=== PATIENT | male | born 1950 | race African-American/Black ===

== ENCOUNTER → 2016-07-04 | Outpatient (CLI) | payer MEDICARE, MEDICAID ==
[~2016-07-04] MED LIST: AMLO5TAB2 PO; ASP325T PO; ATOR20TA66 PO; CLON0.2T12 PO; CYCL10TA9 PO; HCTZ12.5T PO; LEXAPRO PO; LISI20TA PO; METO100T2 PO; MULT-608 PO; NITR0.4T SL; POTA10CA43 PO; TR1O15 TOP; TRAM50TA2 PO
--- NOTE | 2016-07-04 13:23 | Diagnostic Imaging Report ---
PROCEDURE: CT chest without contrast. TECHNIQUE: Multiple contiguous axial images were obtained through the chest without the use of intravenous contrast. INDICATION: Followup pulmonary nodule. COMPARISON: 10/27/14. FINDINGS: There is a lobulated dense pleural-based mass seen in the upper posterior aspect of the right hemothorax measuring 3.1 x 1.3 x 1.5 cm. These measurements and overall appearance are similar to prior exams including 06/25/2014 with no adverse development. Paraseptal emphysema with prominent peripheral bulla are seen in both lung apices but more prominent on the right side and is similar to prior exams. There is no new suspicious nodule, mass or consolidation. Calcified granulomas in the right lower lobe are seen. The mediastinum demonstrates normal caliber of the thoracic aorta. No mediastinal or hilar lymphadenopathy is seen. No pericardial or pleural effusion is identified. The osseous structures and sections in the upper abdomen appear grossly unremarkable. IMPRESSION: 1. Stable pleural-based mass along the upper posterior aspect of the right hemithorax is suggestive of scarring possibly related to prior trauma or injury. Two-year stability is established compatible with benign etiology. 2. Emphysema with prominent apical bulla bilaterally. Dictated by: Dictated on workstation # [id number]
== END ==
LOC: RAD 10:03
PROVIDERS: ATTEND Nurse Practitioner Family
DX: J44.9 Chronic obstructive pulmonary disease, unspecified (principal); R09.02 Hypoxemia; R91.8 Other nonspecific abnormal finding of lung field
CPT/HCPCS: 71250

== ENCOUNTER 2018-03-29 21:04 | Emergency (ER) | payer MEDICARE, MEDICAID ==
[~2018-03-29] VITALS: Ht 170.2 cm; Wt 68.0 kg
[2018-03-29] MEDS ORDERED: MONT10TA24 (21:12)
[2018-03-29] MEDS ORDERED: POTA10TA14 (21:12)
[2018-03-29] MEDS ORDERED: ALBU18HF2 (21:12)
[2018-03-29] MEDS ORDERED: CLON1PAT34 (21:12)
[2018-03-29] MEDS ORDERED: LACTATED RINGERS 1,000 ML IV ONE (21:12)
--- OUTSIDE RECORDS SUMMARY | 2018-03-29 21:12 | XMS REPORT | Encounter Summary ---
Author Author [facility] Organization [facility] Address Unknown Phone Unavailable Care Team Providers Care Sole Stitcher Hand Name Role Phone Roque Mccabe MD Unavailable Sumi Posadas MD Unavailable Thuan Guadarrama MD Unavailable Smitha Andersen MD PCP Unavailable Smitha Andersen MD 100 Unavailable Reason for Visit * Reason Comments Medication Refill Encounter Details Care Team Description Date Type Department Shanks, Vaughn, DO [address] [place] [address] 01/24/2018 Refill [facility] L[address] [place] [address] Social History Date Tobacco Use Types Packs/Day Years Used Current Some Day Smoker Cigarettes 0.75 48 Smokeless Tobacco: Never Used Comments: Reports he started smoking at age 17, 3/4 pack a day on average. Has cut down recently. Alcohol Use Drinks/Week oz/Week Comments Yes 2 Cans of 1.8 beer 1 Shots of liquor Sex Assigned at Date Recorded Not on file Industry Job Start Date Occupation Not on file Not on file Not on file Travel End Travel History Travel Start No recent travel history available. as of this encounter Functional Status Date of Assessment Functional Status Response 08/17/2016 Does the patient have a hearing impairment: Yes 01/01/2017 Does the patient have a visual impairment: Yes 08/17/2016 Does the patient have impaired ambulation: Yes 08/17/2016 Does the patient have an activity of daily living No (ADL) impairment: 08/17/2016 Does the patient have an instrumental activity of No daily living (IADL) impairment: Date of Assessment Cognitive Status Response 08/17/2016 Does the patient have a cognitive impairment: No as of this encounter Miscellaneous Notes * Telephone Encounter - Oliver Frias LPN - 01/24/2018 11:57 AM AWNING HANGER HELPER Amlodipine refilled per [facility] protocol. NG HANGER HELPER in this encounter Plan of Treatment Not on fileas of this encounter Visit Diagnoses Not on filein this encounter
--- OUTSIDE RECORDS SUMMARY | 2018-03-29 21:12 | XMS REPORT | Clinical Summary ---
Author Author [facility] Organization [facility] Address Unknown Phone Unavailable Care Team Providers Care Wheel Blocker Name Role Phone Roque Mccabe MD Unavailable Sumi Posadas MD Unavailable Thuan Guadarrama MD Unavailable Smitha Andersen MD PCP Unavailable Smitha Andersen MD 100 Unavailable Source Comments Some departments are not documenting in the electronic medical record. If you do not see the information that you expected, contact Release of Information in the Health Information Management department at [phone] for further assistance in locating additional records.[facility] Allergies Comments Active Allergy Reactions Severity Noted Date Pollen SNEEZING Low 12/09/2015 Medications End Date Status Medication Sig Dispensed Refills Start Date Active nitroglycerin (NITROSTAT) Place 0.3 mg 0 0.3 mg tablet under tongue every 5 minutes as needed for Chest Pain. Active metoprolol (LOPRESSOR) Take 50 mg by 0 100 mg tablet mouth twice daily. Active lisinopril (PRINIVIL; Take 20 mg by 0 ZESTRIL) 20 mg tablet mouth daily. Active cloNIDine (CATAPRES-TTS Apply 1 Patch 0 1) 0.1 mg/day patch to top of skin as directed every 7 days. Active aspirin EC 325 mg tablet Take 325 mg 0 by mouth daily. Active albuterol (VENTOLIN HFA, Inhale 2 0 PROAIR HFA) 90 Puffs by mcg/actuation inhaler mouth every 6 hours as needed for Wheezing. Active vitamins, multiple cap Take 1 Cap by 0 mouth daily. Active HYDROcodone/acetaminophen Take 1-2 Tabs 20 Tab 0 (NORCO; VICODIN) 5-325 mg by mouth 6 tablet every 4 hours as needed for Pain Earliest Fill Date: 08/26/15 Active gabapentin (NEURONTIN) Take 1 Cap by 270 Cap 3 300 mg capsule mouth every 8 6 hours. Start 1 tab QAM x 3 days, then 1 tab BID x 3, then 1 tab TID. Active atorvastatin (LIPITOR) 40 Take 1 Tab by 90 Tab 3 mg tablet mouth daily. 6 Active hydroCHLOROthiazide Take 1 Tab by 90 Tab 1 (HYDRODIURIL) 12.5 mg mouth daily. 7 tablet Active avanafil 200 mg tab Take 1 Tab by 3 Tab 11 mouth as 7 Needed (Erectile Dysfunction). 1 tab po 15-30 min prior to sexual activity. Active nicotine polacrilex Take 1 each 1 box 1 (NICORETTE) 2 mg gum by mouth as 7 Needed for Smoking cessation. Active amLODIPine (NORVASC) 5 mg TAKE ONE 90 tablet 0 tablet TABLET BY 8 MOUTH ONCE DAILY Active Problems Problem Noted Date S/P angioplasty with stent 02/15/2017 Overview: Between 5-10 years @ [place], [place] Unable to get records. Destroyed in [place]. Coronary artery calcification 02/14/2017 Overview: Marked coronary artery calcification,per Lung screening CT in 01/01/17. Tobacco abuse disorder 02/14/2017 Overview: > 40 pk year smoking history. Essential hypertension 02/14/2017 Overview: Treated for many years. Chronic bullous emphysema 02/14/2017 Nocturnal hypoxemia due to emphysema 02/14/2017 Overview: Uses O2 @2.5 as needed @ noc and as needed during day(ordered 2 years ago) Hyperlipidemia, mixed 02/14/2017 Overview: On statin. Multiple pulmonary nodules 01/01/2017 Scrotal irritation 10/22/2015 Overview: 03/16/16: Continues to have anterior scrotal burning/discomfort since male sling procedure, not relieved by gabapentin. L ast Assessment & Plan: Mr. Thomson is a 65 year old gentleman who had a male sling placed by Dr. Mccabe 08/25/15 for JOE post-prostatectomy and since that time has had anterior scrotal pain, refractory to gabapentin. Plan: - Referral to pain management service - Encouraged to continue gabapentin if he feels it provides any benefit Prostate cancer 08/07/2014 Overview: 01/14/2014: RALP/BPLND by Dr. Anthony evans Assessment & Plan: Continue follow up with Dr. Cruz/Lai Erectile dysfunction 08/07/2014 Overview: 03/16/16: Reports he needs more stendra, which works well for him. Prince evans Assessment & Plan: - Prescription for stendra sent to his pharmacy - Patient was advised about side effects of flushing, hypotension, headache, lightheadedness, congestion, rhinorrhea, and the need to avoid driving after taking. Also instructed to contact us if he has any vision or hearing changes. Patient was also informed that he will still need stimulation for the drug to work. Stress incontinence, male 08/07/2014 Overview: 63 year old with mixed urinary incontinence (Stress >> Urge) after RALP by Dr. Cruz in 12/2013. He has followed with Dr. Hoyt since surgery and unfortunately has not improved with kegels or 3 anti-cholinergic medications. 08/25/15: Male sling implantation by Dr. Mccabe 03/16/16: No leakage. Very satisfied Last Assessment & Plan: - Continue to monitor Encounters Care Team Description Date Type Specialty Vaughn Wise DO 01/24/2018 Refill Family Medicine from Last 3 Months Immunizations Name Dates Previously Given Next Due Flu Vaccine 12/09/2015 Quadrivalent=>3 Yo (Preservative Free) Pneumococcal Vaccine 12/09/2015 (23-Laurie Adult) Family History Medical History Relation Name Comments Diabetes Father Hypertension Mother Relation Name Status Comments Father Mother Social History Date Tobacco Use Types Packs/Day Years Used Current Some Day Smoker Cigarettes 0.75 48 Smokeless Tobacco: Never Used Tobacco Cessation: Ready to Quit: Yes; Counseling Given: Yes Comments: Reports he started smoking at age [...] Travel Start No recent travel history available. Last Filed Vital Signs Time Taken Vital Sign Reading 02/15/2017 2:11 PM CIVIL PREPAREDNESS TRAINING OFFICER Blood Pressure 124/82 02/15/2017 2:11 PM CIVIL PREPAREDNESS TRAINING OFFICER Pulse 46 10/26/2016 11:09 AM CDT Temperature 36.7 C (98 F) 01/22/2017 8:59 AM CIVIL PREPAREDNESS TRAINING OFFICER Respiratory Rate 18 01/22/2017 8:59 AM CIVIL PREPAREDNESS TRAINING OFFICER Oxygen Saturation 100% - Inhaled Oxygen - Concentration 02/15/2017 2:11 PM CIVIL PREPAREDNESS TRAINING OFFICER Weight 69.4 kg (153 lb) 02/15/2017 2:11 PM CIVIL PREPAREDNESS TRAINING OFFICER Height 170.2 cm (5' 7") 02/15/2017 2:11 PM CIVIL PREPAREDNESS TRAINING OFFICER Body Mass Index 23.96 Plan of Treatment Health Maintenance Due Date Last Done Comments HEPATITIS C SCREENING 1952 DTAP/TDAP VACCINES (1 - 1970 Tdap) COLORECTAL CANCER 2002 SCREENING SHINGLES RECOMBINANT 2002 VACCINE (1 of 2) INFLUENZA VACCINE 09/26/2017 12/09/2015, 12/09/2015, 12/28/2014 PHYSICAL (COMPREHENSIVE) 10/26/2017 10/26/2016 EXAM ABDOMINAL AORTIC ANEURYSM 2017 01/24/2017 SCREENING PNEUMONIA (PCV13/PPSV23) 2017 12/09/2015 VACCINES (1 of 2 - PCV13) HIV SCREENING Completed 10/26/2016 Implants Device Identifier Shelf Expiration Date Model / Serial / Lot Implanted Type Area Manufactur [id number] / [id number] / [id number] Sling Suburethral Advance Kit N/A: Peritoneum [employer] Polypropylene Male SYS Implanted: Qty: 1 on 08/25/2015 by Roque Mccabe MD Results Not on filefrom Last 3 Months Insurance Payer Benefit Subscriber ID Type Phone Address Plan / Group MEDICARE MEDICARE xxxxxxxxxx Medicare PART A AND B [place] [employer] xxxxxxxxxxx Medicaid STATE HEALTH Advance Directives Patient has advance care planning documents, and code status on file. For more information, please contact: [facility] [address] [place] [address] Date Inactivated Comments Code Status Date Activated 08/26/2015 6:48 PM Full Code 08/25/2015 4:09 PM Provider has discussed Code Status Yes w/Patient or Family?
[2018-03-29 21:35] LABS: BILIRUBIN,URINE NEGATIVE (NEGATIVE); CLARITY,URINE CLEAR; COLOR,URINE YELLOW; GLUCOSE, URINE (UA) NEGATIVE (NEGATIVE); KETONES,URINE NEGATIVE (NEGATIVE); LEUKOCYTE ESTERASE ,URINE NEGATIVE (NEGATIVE); NITRITE,URINE NEGATIVE (NEGATIVE); PH,URINE 6 (5-9); PROTEIN,URINE 2+ (NEGATIVE); UROBILINOGEN,URINE NORMAL (NORMAL)
[2018-03-29 21:36] LABS: BASOPHILS % (AUTO) 0 % (0-10); EOSINOPHILS % (AUTO) 0 % (0-10); HEMATOCRIT 37 % (40-54); HEMOGLOBIN 12.7 G/DL (13.3-17.7); LYMPHOCYTES # (AUTO) 1.5 X 10^3 (1.0-4.0); LYMPHOCYTES % (AUTO) 22 % (12-44); MEAN CORPUSCULAR HEMOGLOBIN 29 PG (25-34); MEAN CORPUSCULAR HGB CONC 34 G/DL (32-36); MEAN CORPUSCULAR VOLUME 86 FL (80-99); MEAN PLATELET VOLUME 10.4 FL (7.4-10.4); MONOCYTES # (AUTO) 0.7 X 10^3 (0.0-1.0); MONOCYTES % (AUTO) 10 % (0-12); NEUTROPHILS # (AUTO) 4.4 X 10^3 (1.8-7.8); NEUTROPHILS % (AUTO) 67 % (42-75); PLATELET COUNT 257 10^3/uL (130-400); WHITE BLOOD COUNT 6.6 10^3/uL (4.3-11.0)
[2018-03-29 21:41] LABS: AMORPHOUS SEDIMENT,UR FEW AMOR URATES /LPF
[2018-03-29 21:45] LABS: INR 1.1 (0.8-1.4); PROTHROMBIN TIME PATIENT 13.9 SEC (12.2-14.7)
[2018-03-29 21:54] LABS: ALANINE AMINOTRANSFERASE 23 U/L (0-55); ALBUMIN 3.8 GM/DL (3.2-4.5); ALKALINE PHOSPHATASE 68 U/L (40-136); AMYLASE 73 U/L (25-125); BILIRUBIN,TOTAL 0.3 MG/DL (0.1-1.0); BUN/CREATININE RATIO 10; CALCIUM 8.6 MG/DL (8.5-10.1); CARBON DIOXIDE 17 MMOL/L (21-32); CHLORIDE 105 MMOL/L (98-107); CREATINE KINASE 282 U/L (30-200); CREATININE SERUM 1.36 MG/DL (0.60-1.30); GFR ESTIMATED > 60; GLUCOSE 106 MG/DL (70-105); LIPASE 26 U/L (8-78); MAGNESIUM 2.1 MG/DL (1.8-2.4); POTASSIUM 3.7 MMOL/L (3.6-5.0); SODIUM 137 MMOL/L (135-145); TOTAL PROTEIN 7.1 GM/DL (6.4-8.2)
[2018-03-29 21:57] LABS: AMPHETAMINE SCREEN, URINE NEGATIVE (NEGATIVE); BARBITURATE SCREEN URINE NEGATIVE (NEGATIVE); BENZODIAZEPINES SCREEN URINE NEGATIVE (NEGATIVE); CANNABINOID SCREEN, URINE NEGATIVE (NEGATIVE); COCAINE SCREEN URINE POSITIVE (NEGATIVE); METHADONE STAT NEGATIVE (NEGATIVE); METHAMPHETAMINE SCREEN URINE S NEGATIVE (NEGATIVE); OPIATE SCREEN URINE NEGATIVE (NEGATIVE); OXYCODONE STAT NEGATIVE (NEGATIVE); PROPOXYPHENE STAT NEGATIVE (NEGATIVE); TRICYCLIC ANTIDEPRESSANTS SCRE NEGATIVE (NEGATIVE)
[2018-03-29 21:58] LABS: ACETAMINOPHEN < 10 UG/ML (10-30)
[2018-03-29 22:00] LABS: CREATINE KINASE MB 1.8 NG/ML (<6.6)
--- NOTE | 2018-03-29 22:06 | Diagnostic Imaging Report ---
INDICATION: Alcohol intoxication, possible seizure. EXAMINATION: CT brain without contrast, 03/29/2018. COMPARISON: None. FINDINGS: Chronic ischemic change is seen in a periventricular distribution. A large area of encephalomalacia is noted within the posterior left occipital lobe. Adjacent ex vacuo dilatation of the posterior horn of the left lateral ventricle noted. No mass, mass effect or midline shift. No hydrocephalus. No acute hemorrhage. There is a rounded hyperdensity in the left frontal region, likely a small osteoma. Osseous structures are intact with no acute osseous abnormality appreciated. The paranasal sinuses and mastoid air cells appear clear. IMPRESSION: Diffuse chronic findings, as described. No acute process appreciated. Dictated by: Dictated on workstation # [id number]
--- NOTE | 2018-03-29 22:20 | ED General ---
General Chief Complaint: Substance Abuse Stated Complaint: ALCOHOL INTOXICATION Nursing Triage Note: brought in by [facility] c/o alcohol intoxication, possible seizure. Nursing Sepsis Screen: No Definite Risk Allergies and Home Medications Allergies Coded Allergies: No Known Drug Allergies (Unverified , 01/05/14) Home Medications Amlodipine Besylate 5 Mg Tab, 5 MG PO DAILY, (Reported) Atorvastatin 20 Mg Tablet, 20 MG PO HS, (Reported) Clonidine HCl 0.2 Mg Tablet, 0.2 MG PO TID, (Reported) Hydrochlorothiazide 12.5 Mg Cap, 12.5 MG PO DAILY, (Reported) Lisinopril 20 Mg Tablet, 20 MG PO DAILY, (Reported) Metoprolol Tartrate 100 Mg Tablet, 100 MG PO BID, (Reported) Potassium Chloride 10 Meq Capsule.sa, 20 MEQ PO DAILY, (Reported) TAKE 2 (10MEQ) TABS Tramadol Hcl 50 Mg Tablet, 50 MG PO Q4H PRN for PAIN, (Reported) PRN PAIN [Lexapro] , 10 MG PO DAILY, (Reported) Past Etbentj-Vdbtsk-Btgluy Hx Patient Social History Alcohol Use: Occasionally Uses Number of Drinks Today: 40 Alcohol Beverage of Choice: Beer, Rum, [place] Recreational Drug Use: Yes Drug of Choice: cannibus, cocaine Smoking Status: Current Everyday Smoker Type Used: Cigarettes 2nd Hand Smoke Exposure: Yes Recent Foreign Travel: No Contact w/Someone Who Travel: No Recent Infectious Disease Expo: No Recent Hopitalizations: No Immunizations Up To Date Tetanus Booster (TDap): Unknown Seasonal Allergies Seasonal Allergies: No Past Medical History Surgeries: Yes (HEART STENTS X2, polyps) Respiratory: Yes Asthma, COPD Currently Using CPAP: No Currently Using BIPAP: No Cardiac: Yes Coronary Artery Disease, High Cholesterol, Hypertension Neurological: Yes Stroke Genitourinary: Yes Prostate Problems Gastrointestinal: Yes Gastroesophageal Reflux Musculoskeletal: Yes Arthritis Endocrine: No HEENT: No Cancer: Yes Prostate Did You Recieve Any Treatments: Yes Psychosocial: No Integumentary: No Blood Disorders: No Family Medical History Alcoholism G8 BROTHER Cardiovascular disease G8 BROTHER G8 SISTER Completed stroke G8 SISTER Diabetes mellitus G8 BROTHER Hypertension G8 BROTHER G8 SISTER No Family History of: AIDS Alzheimer's disease Arthritis Colon cancer Drug abuse Kidney disease Myocardial infarction Prostate cancer Respiratory disorder Seizure disorder Severe allergy Thyroid disease Physical Exam Vital Signs Vital Signs - First Documented 03/29/18 03/29/18 21:04 21:10 Temp 97.4 Pulse 67 Resp 16 B/P (MAP) 139/75 (96) Pulse Ox 92 O2 Delivery Room Air O2 Flow Rate 2.00 Capillary Refill : Less Than 3 Seconds Height, Weight, BMI Height: 5'7.00" Weight: 150lbs. oz. 68.406814sj; 23.18 BMI Method:Stated Progress/Results/Core Measures Suspected Sepsis Recent Fever Within 48 Hours: No Infection Criteria Present: None New/Unexplained Altered Menta: No Sepsis Screen: No Definite Risk SIRS Temperature:97.4 Pulse: 67 Respiratory Rate: 16 Laboratory Tests 03/29/18 21:15: White Blood Count 6.6 Blood Pressure 139 /75 Mean: 96 Laboratory Tests 03/29/18 21:15: Creatinine 1.36H, INR Comment 1.1, Platelet Count 257, Total Bilirubin 0.3 Results/Orders Lab Results Laboratory Tests Test 03/29/18 21:12 03/29/18 21:15 03/29/18 21:30 Range/Units Urine Color YELLOW Urine Clarity CLEAR Urine pH 6 5-9 Urine Specific [place] 1.015 L 1.016-1.022 Urine Protein 2+ H NEGATIVE Urine Glucose (UA) NEGATIVE NEGATIVE Urine Ketones NEGATIVE NEGATIVE Urine Nitrite NEGATIVE NEGATIVE Urine Bilirubin NEGATIVE NEGATIVE Urine Urobilinogen NORMAL NORMAL MG/DL Urine Leukocyte Esterase NEGATIVE NEGATIVE Urine RBC (Auto) NEGATIVE NEGATIVE Urine RBC NONE /HPF Urine WBC NONE /HPF Urine Crystals PRESENT H /LPF Urine Amorphous Sediment FEW SUDHA URATES H /LPF Urine Bacteria NONE /HPF Urine Casts NONE /LPF Urine Mucus NEGATIVE /LPF Urine Culture Indicated NO White Blood Count 6.6 4.3-11.0 10^3/uL Red Blood Count 4.32 L 4.35-5.85 10^6/uL Hemoglobin 12.7 L 13.3-17.7 G/DL Hematocrit 37 L 40-54 % Mean Corpuscular Volume 86 80-99 FL Mean Corpuscular Hemoglobin 29 25-34 PG Mean Corpuscular Hemoglobin Concent 34 32-36 G/DL Red Cell Distribution Width 14.0 10.0-14.5 % Platelet Count 257 130-400 10^3/uL Mean Platelet Volume 10.4 7.4-10.4 FL Neutrophils (%) (Auto) 67 42-75 % Lymphocytes (%) (Auto) 22 12-44 % Monocytes (%) (Auto) 10 0-12 % Eosinophils (%) (Auto) 0 0-10 % Basophils (%) (Auto) 0 0-10 % Neutrophils # (Auto) 4.4 1.8-7.8 X 10^3 Lymphocytes # (Auto) 1.5 1.0-4.0 X 10^3 Monocytes # (Auto) 0.7 0.0-1.0 X 10^3 Eosinophils # (Auto) 0.0 0.0-0.3 10^3/uL Basophils # (Auto) 0.0 0.0-0.1 10^3/uL Prothrombin Time 13.9 12.2-14.7 SEC INR Comment 1.1 0.8-1.4 Activated Partial Thromboplast Time 23 L 24-35 SEC Sodium Level 137 135-145 MMOL/L Potassium Level 3.7 3.6-5.0 MMOL/L Chloride Level 105 98-107 MMOL/L Carbon Dioxide Level 17 L 21-32 MMOL/L Anion Gap 15 H 5-14 MMOL/L Blood Urea Nitrogen 13 7-18 MG/DL Creatinine 1.36 H 0.60-1.30 MG/DL Estimat Glomerular Filtration Rate > 60 BUN/Creatinine Ratio 10 Glucose Level 106 H 70-105 MG/DL Calcium Level 8.6 8.5-10.1 MG/DL Corrected Calcium 8.8 8.5-10.1 MG/DL Magnesium Level 2.1 1.8-2.4 MG/DL Total Bilirubin 0.3 0.1-1.0 MG/DL Aspartate Amino Transf (AST/SGOT) 27 5-34 U/L Alanine Aminotransferase (ALT/SGPT) 23 0-55 U/L Alkaline Phosphatase 68 40-136 U/L Total Creatine Kinase 282 H 30-200 U/L Creatine Kinase MB 1.8 <6.6 NG/ML Myoglobin 79.0 10.0-92.0 NG/ML Troponin I < 0.028 <0.028 NG/ML Total Protein 7.1 6.4-8.2 GM/DL Albumin 3.8 3.2-4.5 GM/DL Amylase Level 73 25-125 U/L Lipase 26 8-78 U/L Acetaminophen Level < 10 L 10-30 UG/ML Serum Alcohol 146 H <10 MG/DL Urine Opiates Screen NEGATIVE NEGATIVE Urine Oxycodone Screen NEGATIVE NEGATIVE Urine Methadone Screen NEGATIVE NEGATIVE Urine Propoxyphene Screen NEGATIVE NEGATIVE Urine Barbiturates Screen NEGATIVE NEGATIVE Ur Tricyclic Antidepressants Screen NEGATIVE NEGATIVE Urine Phencyclidine Screen NEGATIVE NEGATIVE Urine Amphetamines Screen NEGATIVE NEGATIVE Urine Methamphetamines Screen NEGATIVE NEGATIVE Urine Benzodiazepines Screen NEGATIVE NEGATIVE Urine Cocaine Screen POSITIVE H NEGATIVE Urine Cannabinoids Screen NEGATIVE NEGATIVE My Orders Orders - CHAYA SILVESTRE DO Saline Lock/Iv-Start (03/29/18 21:12) Ekg Tracing (03/29/18 21:12) O2 (03/29/18 21:12) Monitor-Rhythm Ecg Trace Only (03/29/18 21:12) Ct Head Wo-R/O Stroke (03/29/18 21:12) Acetaminophen (03/29/18 21:12) Alcohol (03/29/18 21:12) Amylase (03/29/18 21:12) Cbc With Automated Diff (03/29/18 21:12) Comprehensive Metabolic Panel (03/29/18 21:12) Creatine Kinase (03/29/18 21:12) Creatine Kinase Mb (03/29/18 21:12) Drug Screen Stat (Urine) (03/29/18 21:12) Lipase (03/29/18 21:12) Magnesium (03/29/18 21:12) Protime With Inr (03/29/18 21:12) Partial Thromboplastin Time (03/29/18 21:12) Troponin I (03/29/18 21:12) Ua Culture If Indicated (03/29/18 21:12) Myoglobin Serum (03/29/18 21:12) Chest 1 View, Ap/Pa Only (03/29/18 21:12) Saline Lock/Iv-Start (03/29/18 21:12) Lactated Ringers (Lr 1000 Ml Iv Solution (03/29/18 21:12) Vital Signs/I&O 03/29/18 03/29/18 21:04 21:10 Temp 97.4 Pulse 67 Resp 16 B/P (MAP) 139/75 (96) Pulse Ox 92 95 O2 Delivery Room Air Nasal Cannula O2 Flow Rate 2.00 Capillary Refill : Less Than 3 Seconds Blood Pressure Mean: [address] HEAD--NO ACUTE PROCESS, CHRONIC CHANGES, OLD ENCEPHALOMALACIA IN OCCIPITAL AREA--PER RADIOLOGIST REPORT AT 2218 CXR--NO ACUTE PROCESS, CHRONIC CHANGES, PER RADIOLOGIST REPORT AT 2224 Reviewed: Reviewed by Me Departure Impression Primary Impression: Alcohol abuse Additional Impression: Drug abuse Disposition: 01 HOME, SELF-CARE Condition: Stable Departure-Patient Inst. Referrals: SELF,VIOLETA COBB (PCP/Family) Primary Care Physician Patient Instructions: ALCOHOL AND SUBSTANCE ABUSE, Alcohol Abuse and Alcoholism (DC), Drug Abuse and Drug Addiction (DC) Add. Discharge Instructions: NO ALCOHOL NO DRUGS LOTS OF CLEAR LIQUIDS--DRINK EQUAL AMOUNTS OF WATER AND GATORADE FOLLOW UP WITH YOUR DR NEXT WEEK FOR FOLLOW UP RETURN TO ER IF NEEDED All discharge instructions reviewed with patient and/or family. Voiced understanding. CHAYA SILVESTRE DO Mar 29, 2018 22:20
--- NOTE | 2018-03-29 22:23 | Diagnostic Imaging Report ---
INDICATION: Alcohol intoxication, possible seizure. EXAMINATION: Chest, 03/29/2018. COMPARISON: Correlation made to prior CT imaging of the chest from 07/04/2016. FINDINGS: There are densities throughout the right mid and lower lung which appear calcified and consistent with calcified granuloma seen on prior CT imaging. The lungs are hyperinflated. Nonspecific low-density areas are noted in the right lung apex. This could represent the pleural-based lesion seen on prior CT with peripheral calcifications, perhaps calcified pleural plaque or mass. This is fairly stable but could be better characterized with followup CT of the chest for comparison on a nonemergent basis. Remaining lungs demonstrate chronic findings. No effusions. No infiltrates. No pneumothorax. Heart and pulmonary vasculature demonstrate no acute findings. IMPRESSION: Diffuse chronic findings, as described. Low-density area in the right lung apex is noted and consistent with prior findings, please see above discussion. Dictated by: Dictated on workstation # [id number]
[2018-03-29 22:40] VITALS: BP 151/89
== END 2018-03-29 22:42 | disposition home or self-care (01) ==
LOC: EDUNIT# 21:04 → ER 21:05
DX: F10.129 Alcohol abuse with intoxication, unspecified (principal); J44.9 Chronic obstructive pulmonary disease, unspecified; I25.10 Atherosclerotic heart disease of native coronary artery without angina pectoris; E78.00 Pure hypercholesterolemia, unspecified; I10 Essential (primary) hypertension; K21.9 Gastro-esophageal reflux disease without esophagitis; F14.10 Cocaine abuse, uncomplicated; F12.10 Cannabis abuse, uncomplicated; F17.210 Nicotine dependence, cigarettes, uncomplicated; Z86.73 Personal history of transient ischemic attack (TIA), and cerebral infarction without residual deficits; Z92.21 Personal history of antineoplastic chemotherapy; Z82.49 Family history of ischemic heart disease and other diseases of the circulatory system; Z95.5 Presence of coronary angioplasty implant and graft; Z85.46 Personal history of malignant neoplasm of prostate; Z86.010 Personal history of colon polyps
CPT/HCPCS: 36415; 70450; 71045; 80053; 80306; 80320; 80329; 81000; 82150; 82550; 82553; 83690; 83735; 83874; 84484; 85025; 85610; 85730; 93041

== ENCOUNTER → 2019-09-03 | Outpatient (CLI) | payer MEDICAID, MEDICARE ==
[~2019-09-03] MED LIST changes: +ALBU18HF2; +CLON1PAT34; +MONT10TA26; +POTA10TA14
--- NOTE | 2019-09-03 13:14 | Diagnostic Imaging Report ---
INDICATION: Abdominal distention. TIME OF EXAM: 12:39 p.m. COMPARISON: No prior studies are available for comparison. FINDINGS: The bowel gas pattern is nonobstructed. No definite free air is seen. No pathologic calcifications are detected. There are some sclerotic curvilinear opacities in the femoral heads bilaterally. This may be owing to osteonecrosis, although no fragmentation or volume loss of the femoral heads is seen. IMPRESSION: No acute feature in the abdomen is identified. Dictated by: Dictated on workstation # [id number]
== END ==
LOC: RAD FS 12:17
PROVIDERS: ATTEND Family Medicine
DX: R14.0 Abdominal distension (gaseous) (principal); J43.1 Panlobular emphysema
CPT/HCPCS: 74018

== ENCOUNTER → 2022-08-05 | Outpatient (CLI) | payer MEDICARE, MEDICAID ==
[~2022-08-05] MED LIST changes: +MONT-40; -MONT10TA26; +POTA-164; -POTA10TA14
--- NOTE | 2022-08-05 14:20 | Diagnostic Imaging Report ---
INDICATION: Left foot pain. Foot injury. FINDINGS: Alignment of the foot appears appropriate. There are no findings of joint dislocation. There is no fracture. There is no suspicious bone lesion. There are small vessel arterial calcifications. There are no significant arthritic changes or erosions. IMPRESSION: 1. Negative radiographs of the left foot. Dictated by: Dictated on workstation # [id number]
== END ==
LOC: RAD FS 13:38
PROVIDERS: ATTEND Nurse Practitioner Family
DX: M79.672 Pain in left foot (principal)
CPT/HCPCS: 73630

== ENCOUNTER → 2023-01-22 | Outpatient (CLI) | payer MEDICARE, MEDICAID ==
--- NOTE | 2023-01-22 11:33 | Diagnostic Imaging Report ---
PROCEDURE: MR imaging of the brain without contrast. TECHNIQUE: Multiplanar, multisequence MR imaging of the brain was performed without contrast. INDICATION: Headache, unspecified. FINDINGS: There is prominence of the ventricles and sulci. There is some chronic microvascular ischemic disease. There are no areas of diffusion restriction appreciated to suggest an acute CVA. There is no hydrocephalus. There is no midline shift. There is no mass, hemorrhage, or extra-axial fluid collection. The sinuses and mastoid air cells are clear. The globes and intraorbital structures are unremarkable. IMPRESSION: Atrophy and some chronic microvascular ischemic disease with some focal encephalomalacia in the medial aspect of the left occipital lobe. No other acute intracranial abnormality. Dictated by: Dictated on workstation # [id number]
== END ==
LOC: RAD 09:30
PROVIDERS: ATTEND Family Medicine
DX: G93.89 Other specified disorders of brain (principal); G31.9 Degenerative disease of nervous system, unspecified
CPT/HCPCS: 70551